=== PATIENT | male | born 1990 | race Caucasian/White ===

== ENCOUNTER 2018-04-19 17:42 | Emergency (ER) | payer SELFPAY ==
[2018-04-19] MEDS: SOD CHLORIDE 0.9% 1,000 ML IV (19:11)
[2018-04-19] MEDS: ONDANSETRON 4 MG INJ IV (19:11)
[2018-04-19] MEDS: KETOROLAC 30 MG INJ IV (19:12)
[2018-04-19] MEDS: ACETAMINOPHEN 500 MG TAB PO (20:46)
== END 2018-04-19 21:52 | disposition home or self-care (01) ==
LOC: FTE 21:52
DX: R51 Headache (principal); F17.210 Nicotine dependence, cigarettes, uncomplicated
CPT/HCPCS: 70450; 96374; 96375; 99285-25